=== PATIENT | female | born 1970 | race African-American/Black ===

== ENCOUNTER 2021-02-16 09:45 | Day surgery (SDC) | payer BC ==
--- NOTE | 2021-02-12 10:58 | RAD REPORT ---
EXAM DESCRIPTION: Saul Ahn And Lat (2 Views)02/12/2021 10:48 am CLINICAL HISTORY: Preop for cardiac catheterization COMPARISON: None FINDINGS: The lungs appear clear of acute infiltrate. The heart is normal size. Right cardiophrenic opacity may represent epicardial fat or pericardial cyst IMPRESSION: No acute abnormalities displayed
[2021-02-12 11:08] LABS: Absolute Lymphocytes (CBC) 2.4 K/uL (0.7-4.9); Basophils % 0.6 % (0-1.3); Hematocrit 35.7 % (36.0-45.0); Lymphocytes % 30.2 % (15.3-44.8); MPV 8.4 fL (7.6-11.3); RBC Red Blood Cell Count 4.74 M/uL (3.86-4.86)
[2021-02-12 11:16] LABS: Potassium 3.4 mmol/L (3.5-5.1); Protime INR 0.99
[~2021-02-16 09:45] MED LIST: NA CHLORIDE 0.9% 500 ML ONE
[2021-02-16] MEDS ORDERED: FENTANYL CITR 100 MCG/2 ML ONE (11:27)
[2021-02-16] MEDS ORDERED: ATROPINE SULF 1 MG/10 ML SYR IV ONE (11:27)
[2021-02-16] MEDS ORDERED: MIDAZOLAM HCL 2 MG/2 ML INJ ONE (11:27)
[2021-02-16] MEDS ORDERED: NA CHLORIDE 0.9% 0 ML ONE (11:27)
[2021-02-16] MEDS ORDERED: HEPA 1000U/500MLS 1,000 UNIT/500 ML BAG IV ONE (11:41)
[2021-02-16] MEDS ORDERED: LIDOCAINE 1% 20 ML MDV ONE (11:41)
--- NOTE | 2021-02-16 12:41 | OP ---
Date of Procedure: 02/16/2021 Surgeon: Burak Perea MD Physical Medicine Physician: Kristina Arreola. Procedure Performed: The patient admitted today as an outpatient 02/16/2021 for left heart catheteri zation. Indication: Abnormal stress test and chest pain. Procedure In Detail: The patient is 50, was brought to the cardiovascular lab director today as an outpatient, prepped and draped in the routine sterile fashion. Given Versed and fentanyl for sedation. A 6-British sheat h introduced in the right common femoral artery successfully using the Seldinger technique and 10 cc of Xylocaine. Jose A catheter left and right were used to cannulate the left main and right main re spectively. The patient was found to have perfectly normal coronaries. She was right dominant. She is tolerated the procedure well. There were no complications. Blood Loss: 5 cc. Total conscious sedation 30 minutes. Postoperative Diagnosis: Positive stress test, normal coronaries. Plan: To continue medical therapy. Angiography in the groin was normal. Angio-Seal was used to laurent se the case. The patient will be at bedrest for 2 hours in the hospital following the procedure. antonina will go home after that. I will see her in the office in 2 weeks. LUIS/LUCIO Voice ID: [id number] Report ID: [id number]
[2021-02-16 13:57] VITALS: TEMP 98.6
[2021-02-16 14:31] VITALS: BP 123/76; O2SAT 99
== END 2021-02-16 14:44 | disposition home or self-care (01) ==
LOC: CCL 09:45
DX: R94.39 Abnormal result of other cardiovascular function study (principal); R07.9 Chest pain, unspecified; I10 Essential (primary) hypertension; E78.2 Mixed hyperlipidemia; E11.9 Type 2 diabetes mellitus without complications; G47.33 Obstructive sleep apnea (adult) (pediatric); E66.9 Obesity, unspecified; Z68.22 Body mass index [BMI] 22.0-22.9, adult; Z20.822 Contact with and (suspected) exposure to COVID-19
CPT/HCPCS: 93005; 85025; 80048; 36415; 85610; 85730; 71046; 93454; U0003; C1893; C1760; J2250; J3010; J7040; J1644; J0583